=== PATIENT | male | born 1980 | race Caucasian/White ===

== ENCOUNTER 2018-11-30 06:45 | Day surgery (SDC) | payer OTHER ==
[~2018-11-30] VITALS: Ht 167.6 cm; Wt 44.0 kg
[~2018-11-30 06:45] MED LIST: AMBIEN10 MG PO; BACLOFEN10 MG PO; BAZA PROTECT C142 GM TOP; CALCIUM500 MG PO; CITROMA296 ML PO; DOK100 MG PO; GAVILAX17 GM PO; HYDROCODON-ACE1 EA10 PO; LEVOTHYROXINE25 MCG PO; MAPAP500 MG PO; MELATIN3 MG PO; MOBIC15 MG PO; MULTIVITAMINS1 EAC7 PO; OYSTER SHELL 51 EACH PO; TYLENOL WITH C1 EACH PO; VITAMIN D31000 UNIT PO; ZIPRASIDONE HCL40 MG PO
--- NOTE | 2018-11-30 10:18 | NUR ---
11/30/18 1018 Corin Steele 1003 PT TO PACU, PT IS ASLEEP AND NON AROUSABLE TO STIMULI. O2 IN PLACE. BREATHING EVEN AND NON LABORED. MONITORS APPLIED. LR CONTINUES TO INFUSE. PT HAS H/O CP AND NON VERBAL. 1013 PT HAS SNORING RESPIRATIONS, O2 SATS REMAIN 99% ON 7L PER SIMPLE MASK, MANUAL AIRWAY ASSISTANCE VIA JAW LIFT. PT REMAINS ASLEEP. 1014 PT NO LONGER REQUIRES AIRWAY ASSISTANCE. CONTINUE TO MONITOR. 1017 PT REMAINS ASLEEP AND NON AROUSEABLE ALTHOUGH MAKING MOANING SOUNDS.
--- NOTE | 2018-11-30 11:10 | NUR ---
1035 PT ARRIVED FROM PACU, DROWSY. ATTEMPTED VITALS. BP OBTAINED. PULSE OX ATTEMPTED, PT FIGHTING TRYING TO REMOVE PULSE OX. SMALL AMOUNT OF BLEEDING NOTED FROM THE GUMS. APPLE JUICE GIVEN. CAREGIVERS AT BEDSIDE.
--- NOTE | 2018-11-30 11:12 | NUR ---
CAREGIVERS CALLED INTO ROOM. PT AWAKE. CAREGIVERS STATE THAT PT IS ATTEMPTING TO REMOVE IV. IV REMOVED. PUDDING GIVEN TO PT. DISCUSSED DC CRITERIA WITH CAREGIVERS. WILL ANTICIPATE DC IF PT IS ABLE TO URINATE.
--- NOTE | 2018-11-30 11:52 | NUR ---
PT NOT COOPERATIVE FOR VS. ALERT AND ACTIVE SKIN W D P . ATTENDS WET, CARE GIVERS CHANGING. WANT TO GO HOME.
== END 2018-11-30 12:00 | disposition home or self-care (01) ==
LOC: DS 06:45
PROVIDERS: Dentist General Practice
PROC: 0CBWXZ1 Excision of Upper Tooth, External Approach, Multiple (ICD-10-PCS; 2018-11-30)
PROC: 0CBXXZ1 Excision of Lower Tooth, External Approach, Multiple (ICD-10-PCS; principal; 2018-11-30 09:00)
DX: K05.6 Periodontal disease, unspecified (principal); Z79.1 Long term (current) use of non-steroidal anti-inflammatories (NSAID); Z79.899 Other long term (current) drug therapy
CPT/HCPCS: 00170; J0330; J1100; J2250; J2405; J2704; J3010

== ENCOUNTER 2020-05-29 07:18 | Day surgery (SDC) | payer OTHER ==
[2020-05-29] MEDS ORDERED: MILK OF MA400 MG/5 M PO (07:56)
--- NOTE | 2020-05-29 10:54 | NUR ---
05/29/20 1053 Carley Napier 1027- PT TO PACU IN SUPINE POSITION. EYES CLOSED. DOES NOT RESPOND TO VERBAL STIMULI. BREATHING EASY AND UNLABORED. SPO2 >95% ON 6 L O2 VIA SIMPLE MASK. REPORT RECEIVED FROM WALL WASHER. 1033- PT CONTINUES TO SLEEP IN THE SEMIFOWLER POSITION. DOES NOT RESPOND TO VERBAL STIMULI. BREATHING EASY AND UNLABORED SP02 >95% ON 6 L O2 VIA SIMPLE MASK. 1037- PT CONTINUES TO SLEEP. REPOSITIONED TO SF POSITION. WARM BLANKETS PROVIDED. 1040- PT SUCTIONED FOR AUDIBLE UPPER AIRWAY SECRETIONS. UPON SUCTIONING PT BEGAN EXCESSIVE SWALLOWING WITH POOR VENTILATORY EFFORT. WALL WASHER NOTIFIED AND ORAL AIRWAY PLACED. PT. CONTINUES TO BE NONRESPONSIVE. BREATHING EFFORT ADEQUATE WITH ORAL AIRWAY IN PLACE. SPO2 ALWAYS MAINTAINED ABOUT 95%. 1048- PT CONTINUES TO SLEEP WITH ORAL AIRWAY IN PLACE. WALL WASHER AT BEDSIDE. PT UNRESPONSIVE TO TACTILE AND VERBAL STIMULI. SPO2 >95% ON 6 L O2 VIA SIMPLE MASK. 1053- PT CONTINUES TO SLEEP WITH ORAL AIRWAY IN PLACE. DOES NOT RESPOND TO VERBAL OR TACTILE STIMULI.
--- NOTE | 2020-05-29 11:07 | NUR ---
DR. BARNES IN PT RM TALKING TO CAREGIVERS. ORDER TO HOLD AM MEDICATIONS GIVEN REQUESTED.
--- NOTE | 2020-05-29 11:44 | NUR ---
[id number]: PT BACK TO DS RM 4 FROM PACU. PT SEDATED COMPARED TO BASELINE, LOOKING AROUND CALMLY. PT ALLOWS THIS RN TO REMOVE IV WITH NO PROBLEMS AND OBTAIN VS. PT RESPONDS TO VERBAL STIMULI. CALL LIGHT WITH CAREGIVERS AT BEDSIDE, ENCOURAGED TO USE WITH ANY NEEDS.
--- NOTE | 2020-05-29 12:10 | NUR ---
[id number]: VERBAL REPORT GIVEN TO JUAN VELASQUEZ RN 1245: CARE RESUMED BY THIS RN FROM JUAN VELASQUEZ RN. PT RETURNS TO BASELINE AND IS READY FOR DC. CAREGIVERS DRESS PT AND DC INSTRUCTIONS PRESENTED TO BOTH CAREGIVERS WHO VERBALIZE AN UNDERSTANDING. NO HOME MEDICATIONS GIVEN. PT DC'S VIA PERSONAL WC TO MAIN ENTRANCE OF HOSPITAL HOME.
== END 2020-05-29 13:00 | disposition home or self-care (01) ==
LOC: DS 07:18 → OPS 07:18 → DS 08:30 → OPS 13:00
PROVIDERS: Dentist General Practice
PROC: 0CDWXZ0 Extraction of Upper Tooth, Single, External Approach (ICD-10-PCS; 2020-05-29)
PROC: 0CDXXZ0 Extraction of Lower Tooth, Single, External Approach (ICD-10-PCS; principal; 2020-05-29 08:30)
DX: K04.7 Periapical abscess without sinus (principal); K03.6 Deposits [accretions] on teeth; K05.10 Chronic gingivitis, plaque induced; F79 Unspecified intellectual disabilities; E03.1 Congenital hypothyroidism without goiter; Z79.899 Other long term (current) drug therapy
CPT/HCPCS: 00190; 80048; 85025; J0330; J0360; J1100; J2405; J2704; J7121

== ENCOUNTER 2021-05-28 08:42 | Day surgery (SDC) | payer OTHER ==
[~2021-05-28] VITALS: Ht 167.6 cm; Wt 40.9 kg
[~2021-05-28 08:42] MED LIST changes: +MILK OF MA400 MG/5 M PO
--- NOTE | 2021-05-28 10:33 | NUR ---
0945: IM INJECTION OF KETAMINE GIVEN BY GUEST RELATION OFFICER. GUEST RELATION OFFICER PLUS TWO RNs AT BEDSIDE. 1000: IV STARTED BY RN. VS CHECKED. O2 MASK AT 10 L/MIN PLACED ON PATIENT. GUEST RELATION OFFICER AND RN AT BEDSIDE. 1035: RN AT BEDSIDE CONTINUOUSLY. PATIENT MAINTAINING O2 SATS WITH O2 MASK.
--- NOTE | 2021-05-28 10:59 | NUR ---
PATIENT TAKEN BACK TO OR. RN AT BEDSIDE CONTINUOUSLY UNTIL PATIENT TAKEN TO OR.
--- NOTE | 2021-05-28 15:14 | NUR ---
05/28/21 1514 Ashley López 1351- PT ARRIVES TO PACU NONAROUSABLE TO NOXIOUS STIMULI WITH AN OPA IN PLACE. RESP EVEN AND SHALLOW. OXYGEN SAT MID 90'S ON 10L VIA MASK. 1352- APPEARS PT IS TRYING TO PUSH HIS OPA OUT WITH HIS TONGUE. AXEL TOURE CRNA REMOVED OPA. OXYGEN MASK REPLACED AT 10L. PT'S OXYGEN SAT DECREASED TO THE HIGH 80'S ON THIS. AXEL TOURE CRNA PERFORMING A JAW THRUST TO ASSIST IN PATENT AIRWAY. PT'S OROPHARYNX SUCTIONED FOR BLOODY SECRETIONS. REPOSITIONED JAW THRUST. OBSTRUCTION RESOLVED. PT MOVING AIR WITH JAW THRUST MAINTAINED. OXYGEN SAT IMPROVED.
--- NOTE | 2021-05-28 15:25 | NUR ---
1447 2 CARE PROVIDERS IN ROOM. TALKING WITH PATIENT REASSURRING.
--- NOTE | 2021-05-28 15:25 | NUR ---
CARE PROVIDER FEEDING JELLO TO PT. EATS CUPS SO NO WATER GIVEN.
== END 2021-05-28 15:45 | disposition home or self-care (01) ==
LOC: DS 08:42 → OPS 08:42 → DS 10:15 → OPS 10:15
PROVIDERS: ATTEND Dentist General Practice
PROC: 0CDXXZ1 Extraction of Lower Tooth, Multiple, External Approach (ICD-10-PCS; principal; 2021-05-28 10:15)
PROC: 0CDWXZ1 Extraction of Upper Tooth, Multiple, External Approach (ICD-10-PCS; principal; 2021-05-28 10:15)
DX: K05.6 Periodontal disease, unspecified (principal)
CPT/HCPCS: 00170; 80048; 85025; J1100; J2370; J3010; J7121; U0003